=== PATIENT | female | born 1985 | race African-American/Black ===

== ENCOUNTER 2021-05-15 13:26 | Emergency (ER) | payer OTHER, MEDICAID ==
[~2021-05-15] VITALS: Ht 162.6 cm; Wt 68.0 kg
[2021-05-15 13:33] VITALS: BP 99/60
[2021-05-15] MEDS ORDERED: FLEXERIL (13:37)
[2021-05-15] MEDS ORDERED: AMIT25TA9 MT (13:37)
[2021-05-15] MEDS ORDERED: ALBU6.7H9 IH (13:37)
[2021-05-15] MEDS ORDERED: ONDA4TAB5 PO (13:37)
[2021-05-15 14:49] LABS: CLARITY URINE CLEAR (CLEAR); COLOR URINE YELLOW (YELLOW); KETONES URINE NEGATIVE (NEGATIVE); LEUKOCYTE ESTERASE URINE NEGATIVE (NEGATIVE); NITRITE URINE NEGATIVE (NEGATIVE); OCCULT BLOOD URINE TRACE (NEGATIVE); PROTEIN URINE NEGATIVE (NEGATIVE); SPECIFIC GRAVITY URINE 1.009 (1.005-1.030); UROBILINOGEN URINE 0.2 E.U./dL (0.2-1.0)
[2021-05-15] MEDS ORDERED: KETOROLAC 60MG/2ML VIAL IM ONE (15:00)
[2021-05-15] MEDS ORDERED: CYCLOBENZAPRINE 10MG TABLET PO ONE (15:00)
[2021-05-15] MEDS ORDERED: CYCL10TA7 MT (15:47)
[2021-05-15] MEDS ORDERED: IBUP-2030 MT (15:47)
== END 2021-05-15 15:56 | disposition home or self-care (01) ==
LOC: ER 15:06
DX: S39.012A Strain of muscle, fascia and tendon of lower back, initial encounter (principal); T83.091A Other mechanical complication of indwelling urethral catheter, initial encounter; X58.XXXA Exposure to other specified factors, initial encounter; Y93.89 Activity, other specified; Y92.89 Other specified places as the place of occurrence of the external cause; Y99.8 Other external cause status
CPT/HCPCS: 81003; 81025; 96372; 99283; J1885